=== PATIENT | female | born 1990 | race Caucasian/White ===

== ENCOUNTER → 2017-04-16 07:54 | Outpatient (CLI) | payer OTHER | END | disposition home or self-care (01) | LOC: LAB 07:54 | DX: D50.8 Other iron deficiency anemias (principal); E83.51 Hypocalcemia; N39.0 Urinary tract infection, site not specified; E03.8 Other specified hypothyroidism; E78.2 Mixed hyperlipidemia; Z11.3 Encounter for screening for infections with a predominantly sexual mode of transmission ==

== ENCOUNTER 2017-05-10 06:50 | Emergency (ER) | payer OTHER ==
[~2017-05-10] VITALS: Ht 160 cm; Wt 97.5 kg
== END 2017-05-10 10:10 | disposition home or self-care (01) ==
LOC: ER 06:50
DX: B34.9 Viral infection, unspecified (principal)